=== PATIENT | male | born 1950 | race Caucasian/White ===

== ENCOUNTER 2018-01-25 12:10 | Inpatient (IN) | payer MEDICARE, OTHER ==
[~2018-01-25] VITALS: Ht 180.3 cm; Wt 120.2 kg
[2018-01-25 12:36] VITALS: BP 121/73
[2018-01-25 13:42] LABS: BASO # 0.1 x10^3/uL (0.0-0.2); BASO % 1 % (0-3); EOS # 0.1 x10^3/uL (0.0-0.7); EOS % 1 % (0-3); HEMATOCRIT 47.5 % (39.0-53.0); HEMOGLOBIN 16.3 g/dL (13.0-17.5); LYMPH # 2.1 x10^3/uL (1.0-4.8); LYMPH % 31 % (24-48); MEAN CORPUSCULAR HEMOGLOBIN 32 pg (25-35); MEAN CORPUSCULAR HGB CONC 34 g/dL (31-37); MEAN CORPUSCULAR VOLUME 93 fL (79-100); MONO # 0.6 x10^3/uL (0.0-1.1); MONO % 9 % (0-9); NEUT # 3.8 x10^3uL (1.8-7.7); NEUT % 57 % (31-73); PLATELET COUNT 176 x10^3/uL (140-400); RED BLOOD COUNT 5.14 x10^6/uL (4.30-5.70); RED CELL DISTRIBUTION WIDTH 14.5 % (11.5-14.5); WHITE BLOOD COUNT 6.7 x10^3/uL (4.0-11.0)
[2018-01-25 13:56] LABS: ALBUMIN 2.7 g/dL (3.4-5.0); ALBUMIN/GLOBULIN RATIO 0.6 (1.0-1.7); CALCIUM 9.3 mg/dL (8.5-10.1); CREATININE 1.4 mg/dL (0.7-1.3); GFR 50.4; POTASSIUM 4.2 mmol/L (3.5-5.1); TOTAL BILIRUBIN 0.3 mg/dL (0.2-1.0); TOTAL PROTEIN 7.2 g/dL (6.4-8.2)
[2018-01-25 14:17] LABS: % BANDS 1 % (0-9); % BASOS 1 % (0-3); % EOS 1 % (0-5); % LYMPHS 35 % (24-48); % METAS 1 % (0-0); % MONOS 11 % (0-10); % SEGS 50 % (35-66)
[2018-01-25 14:18] LABS: PLT ESTIMATE ADEQUATE (ADEQUATE)
[2018-01-25] MEDS ORDERED: methylPREDNISolone SOD SUCC PF 40 MG/ML VIAL. IV SCH (14:30)
[2018-01-25] MEDS: IPRATRPIUM/ALBUTEROL 0.5/2.5MG 3 ML NEBU. NEB SCH ×2 (16:00→21:13)
[2018-01-25] MEDS ORDERED: IOHEXOL 300 MG/ML 75 ML VIAL. IV ONE (18:15)
[2018-01-25 19:29] VITALS: BP 115/79
[2018-01-25] MEDS ORDERED: NICOTINE 21MG PATCH. TD SCH (20:00)
[2018-01-25] MEDS ORDERED: ASPI-612 PO (20:01)
[2018-01-25] MEDS ORDERED: CHOL10003 PO (20:01)
[2018-01-25] MEDS ORDERED: DICL100G18 TP (20:01)
[2018-01-25] MEDS ORDERED: OMEG-33 PO (20:01)
[2018-01-25] MEDS ORDERED: TORS20TA2 PO (20:01)
[2018-01-25] MEDS ORDERED: LEVO50TA5 PO (20:01)
[2018-01-25] MEDS ORDERED: CARV12.52 PO (20:01)
[2018-01-25] MEDS ORDERED: POTA20TA4 PO (20:01)
[2018-01-25] MEDS ORDERED: PITA4TAB2 PO (20:01)
[2018-01-25] MEDS ORDERED: GABA-586 PO (20:01)
[2018-01-25] MEDS ORDERED: LISI-338 PO (20:01)
[2018-01-25] MEDS ORDERED: NITR0.4T22 SL (20:01)
[2018-01-25] MEDS ORDERED: NIAC500T PO (20:01)
[2018-01-25] MEDS ORDERED: ALLO300T PO (20:01)
[2018-01-25] MEDS: IV NORMAL SALINE 1,000ML 1,000 ML IV SCH (20:09)
[2018-01-25] MEDS: cefTRIAXone IV Push 1 GM VIAL. IVP SCH (20:10)
[2018-01-25] MEDS: NIACIN ER 500 MG TABLET.ER PO SCH (21:00)
[2018-01-25] MEDS ORDERED: DICLOFENAC SODIUM 1% TOPICAL GEL 100GM TUBE. TP PRN (21:00)
[2018-01-25] MEDS ORDERED: NITROGLYCERIN SUBLINGUAL 0.4 MG BOTTLE OF 25. SL PRN (21:00)
[2018-01-25] MEDS: LACTOBACILLUS RHAMNOSUS GG 1 CAPSULE. PO SCH (21:36)
[2018-01-25] MEDS: OMEGA-3 FATTY ACIDS/FISH OIL 1,000 MG CAPSULE. PO SCH (21:37)
[2018-01-25] MEDS: GABAPENTIN 300 MG CAPSULE. PO SCH (21:37)
[2018-01-25] MEDS: CARVEDILOL 12.5 MG TABLET PO SCH (21:38)
[2018-01-25 22:25] LABS: BACTERIA,URINE 0 /HPF (0-FEW); BILIRUBIN,URINE NEG (NEG); CLARITY,URINE CLEAR; COLOR,URINE YELLOW; GLUCOSE,URINE NEG (NEG); HYALINE CASTS, URINE MOD /HPF; NITRITE,URINE NEG (NEG); RBC,URINE OCC /HPF (0-2); SQUAMOUS EPITHELIAL CELL,UR OCC /LPF; UROBILINOGEN,URINE 0.2 mg/dL (0.2 mg/dL); WBC,URINE OCC /HPF (0-4)
[2018-01-25 22:44] VITALS: BP 135/73
[2018-01-26] MEDS: IPRATRPIUM/ALBUTEROL 0.5/2.5MG 3 ML NEBU. NEB SCH ×4 (05:21→21:09)
[2018-01-26] MEDS: LEVOTHYROXINE 50 MCG TABLET PO SCH ×2 (05:22→05:33)
[2018-01-26 05:36] VITALS: BP 140/83
[2018-01-26 06:19] LABS: BASO # 0.1 x10^3/uL (0.0-0.2); BASO % 1 % (0-3); EOS % 0 % (0-3); HEMATOCRIT 46.7 % (39.0-53.0); HEMOGLOBIN 16.2 g/dL (13.0-17.5); LYMPH # 1.5 x10^3/uL (1.0-4.8); LYMPH % 14 % (24-48); MEAN CORPUSCULAR HEMOGLOBIN 32 pg (25-35); MEAN CORPUSCULAR HGB CONC 35 g/dL (31-37); MEAN CORPUSCULAR VOLUME 93 fL (79-100); MONO # 0.4 x10^3/uL (0.0-1.1); MONO % 4 % (0-9); NEUT # 8.3 x10^3uL (1.8-7.7); NEUT % 81 % (31-73); PLATELET COUNT 178 x10^3/uL (140-400); RED BLOOD COUNT 5.04 x10^6/uL (4.30-5.70); RED CELL DISTRIBUTION WIDTH 14.4 % (11.5-14.5); WHITE BLOOD COUNT 10.3 x10^3/uL (4.0-11.0)
[2018-01-26 06:26] LABS: CALCIUM 9.2 mg/dL (8.5-10.1); CREATININE 1.4 mg/dL (0.7-1.3); GFR 50.4; POTASSIUM 4.3 mmol/L (3.5-5.1)
[2018-01-26 07:42] LABS: % BANDS 4 % (0-9); % BASOS 1 % (0-3); % LYMPHS 12 % (24-48); % METAS 1 % (0-0); % MONOS 2 % (0-10); % SEGS 80 % (35-66); PLT ESTIMATE ADEQUATE (ADEQUATE); TOXIC GRANULATION SLIGHT
[2018-01-26 07:43] LABS: POLYCHROMASIA SLIGHT
[2018-01-26] MEDS: POTASSIUM CHLORIDE 20 MEQ TABLET.ER. PO SCH ×2 (08:00→17:00)
[2018-01-26] MEDS: CARVEDILOL 12.5 MG TABLET PO SCH ×2 (08:00→17:00)
[2018-01-26] MEDS: CHOLECALCIFEROL (VITAMIN D3) 1,000 UNIT TABLET PO SCH (09:00)
[2018-01-26] MEDS: ASPIRIN ENTERIC COATED 81 MG TABLET.DR. PO SCH (09:00)
[2018-01-26] MEDS: TORSEMIDE 20 MG TABLET. PO SCH ×2 (09:00→16:00)
[2018-01-26] MEDS: GABAPENTIN 300 MG CAPSULE. PO SCH ×3 (09:00→19:45)
[2018-01-26] MEDS: NIACIN ER 500 MG TABLET.ER PO SCH ×2 (09:00→19:45)
[2018-01-26] MEDS: ALLOPURINOL 300 MG TABLET. PO SCH (09:00)
[2018-01-26] MEDS: LISINOPRIL 5 MG TABLET. PO SCH (09:00)
[2018-01-26] MEDS: LACTOBACILLUS RHAMNOSUS GG 1 CAPSULE. PO SCH ×2 (09:00→19:45)
[2018-01-26] MEDS: OMEGA-3 FATTY ACIDS/FISH OIL 1,000 MG CAPSULE. PO SCH ×2 (09:00→19:45)
[2018-01-26] MEDS ORDERED: PNEUMOC CONJ VACC 23-VALENT 0.5 ML VIAL. VAX IM ONE (09:00)
--- NOTE | 2018-01-26 09:05 | RAD ---
EXAM: CT angiography of the chest with intravenous contrast. HISTORY: Elevated d-dimer. Chest pain. TECHNIQUE: Computed tomographic images of the chest were obtained following the administration of 60 cc Omnipaque 300 intravenous contrast according to angiography protocol. Multiplanar reformatting was performed and 3-dimensional maximum intensity projection images were obtained. *One or more of the following individualized dose reduction techniques were utilized for this examination: 1. Automated exposure control. 2. Adjustment of the mA and/or kV according to patient size. 3. Use of iterative reconstruction technique. COMPARISON: None. FINDINGS: There is a right hilar and perihilar mass with suspected superimposed conglomerate lymphadenopathy which narrows the traversing central pulmonary arteries and bronchi. This measures 7.0 cm in maximum dimension on coronal reconstructed images. There is right supraclavicular, paratracheal, precarinal and subcarinal lymphadenopathy. There is no left hilar lymphadenopathy. No convincing pulmonary embolism is seen, with evaluation limited due to significant respiratory motion and attenuation of the aforementioned right central pulmonary arteries. There is cardiomegaly. There are cardiac pacemaker leads. The aorta is normal in caliber. There is no pneumothorax. There is a trace right pleural effusion. There is slight increased bilateral basilar extrapleural fat. There is groundglass and nodular opacity throughout the right central lung and lower lobe, possibly due to postobstructive pneumonia or lymphangitic spread of tumor. There is a 3.2 cm right adrenal nodule or nodular thickening of the right adrenal gland. There are degenerative changes throughout the spine. There is no suspicious osseous lesion. There is severe right glenohumeral osteoarthritis. IMPRESSION: 1. No convincing pulmonary embolism. Evaluation is limited due to respiratory motion and narrowing of the central right pulmonary arteries due to a right hilar and perihilar mass, described in detail below. 2. Right hilar and perihilar mass with suspected superimposed conglomerate lymphadenopathy measuring approximately 7.0 cm in maximum dimension. This narrows the traversing central right bronchial and pulmonary arteries and is consistent with a primary neoplasm. There is also extensive metastatic lymphadenopathy within the right supraclavicular, paratracheal, precarinal and subcarinal distributions. 3. Groundglass and nodular opacities throughout the right perihilar and lower lobe distribution. This is due to postobstructive pneumonia/pneumonitis or lymphangitic spread of tumor. 4. Cardiomegaly. 5. 3.2 cm right adrenal nodule or nodular thickening of the right adrenal gland. 6. Trace right pleural effusion. Electronically signed by: Glenna Anaya MD (01/26/2018 9:03 AM) [facility]
[2018-01-26] MEDS: oxyCODONE/APAP 10/325 1 TAB TABLET PO PRN (09:06)
[2018-01-26] MEDS: IV NORMAL SALINE 1,000ML 1,000 ML IV SCH ×2 (09:07→23:02)
[2018-01-26] MEDS: methylPREDNISolone SOD SUCC PF 40 MG/ML VIAL. IV SCH ×2 (09:07→19:45)
[2018-01-26 09:51] VITALS: BP 154/79
[2018-01-26] MEDS ORDERED: ONDANSETRON PF 4 MG/2 ML VIAL. IV PRN (10:00)
[2018-01-26 15:30] VITALS: BP 145/88
[2018-01-26] MEDS: HYDROmorphone PF 2 MG/ML VIAL IV PRN ×2 (18:35→23:09)
[2018-01-26] MEDS: cefTRIAXone IV Push 1 GM VIAL. IVP SCH (19:44)
[2018-01-26 20:09] VITALS: BP 150/88
--- NOTE | 2018-01-26 21:12 | PN ---
DATE: 01/26/2018 SUBJECTIVE: The patient in with extreme shortness of breath, acute respiratory failure, exacerbation of COPD. The patient apparently has been going over to the [place] and apparently, they took some type of a biopsy, but we do not have the results. The CT scan did show a probable lung cancer with a right hilar and perihilar mass with probable metastasis as well. In any case, the patient also may have some type of pneumonia and he is on IV antibiotics for that. He says he feels a little better. OBJECTIVE: VITAL SIGNS: Blood pressure 145/80, respiratory rate 20, pulse 90, afebrile presently. GENERAL: The patient is alert and oriented. LUNGS: Diminished, poor movement of air. CARDIOVASCULAR: Regular sinus rhythm. LABORATORY DATA: Hemoglobin and hematocrit 16 and 46. Otherwise, the patient is resting fairly comfortably. The patient's creatinine is elevated at 1.4, lactic acid has come down from 2.2-1.6. IMPRESSION: Pneumonia of unspecified etiology, community acquired. Lung cancer with possible metastasis, severe back pain, probably related to possible metastasis to the bone itself. The patient's family was discussed the situation and will probably be transferred down to if they will accept him and transfer. GUY FLORES MD DR: VERONICA/chan JOB#: [id number] / [id number]
[2018-01-27] MEDS: HYDROmorphone PF 2 MG/ML VIAL IV PRN ×2 (05:22→17:36)
[2018-01-27] MEDS: IPRATRPIUM/ALBUTEROL 0.5/2.5MG 3 ML NEBU. NEB SCH ×4 (05:26→21:05)
[2018-01-27] MEDS: LEVOTHYROXINE 50 MCG TABLET PO SCH (05:42)
[2018-01-27 06:28] VITALS: BP 156/94
[2018-01-27] MEDS: LACTOBACILLUS RHAMNOSUS GG 1 CAPSULE. PO SCH ×2 (09:00→22:31)
[2018-01-27] MEDS: methylPREDNISolone SOD SUCC PF 40 MG/ML VIAL. IV SCH (09:13)
[2018-01-27] MEDS: ASPIRIN ENTERIC COATED 81 MG TABLET.DR. PO SCH (09:43)
[2018-01-27] MEDS: OMEGA-3 FATTY ACIDS/FISH OIL 1,000 MG CAPSULE. PO SCH ×2 (09:43→21:00)
[2018-01-27] MEDS: GABAPENTIN 300 MG CAPSULE. PO SCH ×3 (09:44→20:58)
[2018-01-27] MEDS: CHOLECALCIFEROL (VITAMIN D3) 1,000 UNIT TABLET PO SCH (09:45)
[2018-01-27] MEDS: ALLOPURINOL 300 MG TABLET. PO SCH (09:45)
[2018-01-27] MEDS: TORSEMIDE 20 MG TABLET. PO SCH ×2 (09:45→17:19)
[2018-01-27] MEDS: LISINOPRIL 5 MG TABLET. PO SCH (09:47)
[2018-01-27] MEDS: NIACIN ER 500 MG TABLET.ER PO SCH ×2 (09:48→20:58)
[2018-01-27] MEDS: POTASSIUM CHLORIDE 20 MEQ TABLET.ER. PO SCH ×2 (09:48→17:20)
[2018-01-27 10:59] VITALS: BP 134/75
[2018-01-27 15:08] VITALS: BP 143/94
[2018-01-27] MEDS ORDERED: CARVEDILOL 6.25 MG TABLET PO SCH (17:00)
[2018-01-27] MEDS: IV NORMAL SALINE 1,000ML 1,000 ML IV SCH ×2 (17:36→21:01)
[2018-01-27 19:16] VITALS: BP 127/82
--- NOTE | 2018-01-27 22:08 | PN ---
DATE: SUBJECTIVE: The patient is resting fairly comfortably. He has pneumonia and lung cancer. The patient says he is breathing a little bit easier. He had acute exacerbation when he first came in. He is making slow, but steady progress. Discussed his situation with his lungs and he would like to get down to as an outpatient. We will try to get him scheduled in the [facility]. Biopsy from [place] is pending. OBJECTIVE: VITAL SIGNS: Blood pressure 143/94, respiratory rate 20, pulse 90, afebrile. GENERAL: The patient is alert and oriented. LUNGS: Are diminished, but clear. CARDIOVASCULAR: Examination is stable. ABDOMEN: Soft, nontender. PLAN: As above. GUY FLORES MD DR: VERONICA/chan JOB#: [id number] / [id number]
[2018-01-27] MEDS ORDERED: levoFLOXacin 250 MG TABLET PO SCH (22:30)
[2018-01-28] MEDS: IPRATRPIUM/ALBUTEROL 0.5/2.5MG 3 ML NEBU. NEB SCH (05:12)
[2018-01-28 05:23] VITALS: BP 129/71
[2018-01-28] MEDS: oxyCODONE/APAP 10/325 1 TAB TABLET PO PRN (07:48)
[2018-01-28] MEDS ORDERED: predniSONE 20 MG TABLET PO SCH (09:00)
[2018-01-28] MEDS ORDERED: IPRA3AMP29 NEB (10:06)
[2018-01-28] MEDS ORDERED: LEVO250T25 PO (10:06)
[2018-01-28] MEDS ORDERED: OXYC-411 PO (10:06)
[2018-01-28] MEDS ORDERED: LACT1CAP19 PO (10:06)
[2018-01-28] MEDS ORDERED: PRED5TAB PO (10:06)
--- NOTE | 2018-02-05 14:26 | DS ---
DATE OF DISCHARGE: 01/28/2018 HOSPITAL COURSE: The patient is a 67-year-old male who came in with increased shortness of breath. Seen initially in the office, was noted to have a pneumonic process, was admitted for IV antibiotic therapy and the like. The patient's CAT scan also showed the images of a cancerous lesion within the lungs with probable metastatic disease as well. As a result of all this, the patient was informed he will have to go to for followup on his lung cancer with possible mets. He did have a biopsy at the [place], although those reports were not available at the time. So, what we will do is he will be discharged home and then followup. He has an appointment with [facility]. IMPRESSION: Lung cancer, pneumonia of unspecified etiology, acute exacerbation of chronic obstructive pulmonary disease, type 2 diabetes, sepsis, chronic kidney disease stage 3, [id number] protein malnutrition, morbid obesity. PLAN: As above. Continue to monitor the patient. See EMRAD. Decreased activity. The patient will be discharged home. Follow up as indicated with [facility]. GUY FLORES MD DR: VERONICA/chan JOB#: [id number] / [id number]
== END 2018-01-28 10:15 | disposition home or self-care (01) | DRG 871 ==
LOC: 1 SOUTH 12:12
PROVIDERS: ADMIT Family Medicine; ATTEND Family Medicine
DX: A41.9 Sepsis, unspecified organism (principal); J18.9 Pneumonia, unspecified organism; J96.00 Acute respiratory failure, unspecified whether with hypoxia or hypercapnia; J44.0 Chronic obstructive pulmonary disease with (acute) lower respiratory infection; C34.90 Malignant neoplasm of unspecified part of unspecified bronchus or lung; C79.51 Secondary malignant neoplasm of bone; J44.1 Chronic obstructive pulmonary disease with (acute) exacerbation; E44.0 Moderate protein-calorie malnutrition; E11.9 Type 2 diabetes mellitus without complications; Z95.0 Presence of cardiac pacemaker; Z82.49 Family history of ischemic heart disease and other diseases of the circulatory system; Z83.3 Family history of diabetes mellitus; Z90.49 Acquired absence of other specified parts of digestive tract; E66.01 Morbid (severe) obesity due to excess calories; N18.3 Chronic kidney disease, stage 3 (moderate); E11.22 Type 2 diabetes mellitus with diabetic chronic kidney disease
CPT/HCPCS: 36415; 71275; 80048; 80053; 81001; 82550; 82947; 83605; 85007; 85025; 85379; 87086; 94640; 99406; J0696; J1170; J1956; J2920; J7512; J7620; Q9967; J7030

== ENCOUNTER → 2018-03-13 | Outpatient (CLI) | payer MEDICARE, OTHER ==
[~2018-03-13] MED LIST: ALLO300T PO; ASPI-612 PO; CARV12.52 PO; CHOL10003 PO; DICL100G18 TP; GABA-586 PO; IPRA3AMP29 NEB; LACT1CAP19 PO; LEVO250T25 PO; LEVO50TA5 PO; LISI-338 PO; NIAC500T PO; NITR0.4T22 SL; OMEG-33 PO; OXYC-411 PO; PITA4TAB2 PO; POTA20TA4 PO; PRED5TAB PO; TORS20TA2 PO
[2018-03-13 10:27] LABS: BASO % 0 % (0-3); EOS % 0 % (0-3); HEMOGLOBIN 8.6 g/dL (13.0-17.5); LYMPH # 1.9 x10^3/uL (1.0-4.8); LYMPH % 29 % (24-48); MEAN CORPUSCULAR HEMOGLOBIN 31 pg (25-35); MEAN CORPUSCULAR HGB CONC 34 g/dL (31-37); MEAN CORPUSCULAR VOLUME 90 fL (79-100); MONO # 1.4 x10^3/uL (0.0-1.1); MONO % 21 % (0-9); NEUT # 3.3 x10^3uL (1.8-7.7); NEUT % 49 % (31-73); RED BLOOD COUNT 2.78 x10^6/uL (4.30-5.70); WHITE BLOOD COUNT 6.7 x10^3/uL (4.0-11.0)
[2018-03-13 10:40] LABS: PLATELET COUNT 22 x10^3/uL (140-400)
[2018-03-13 13:51] LABS: % BANDS 13 % (0-9); % LYMPHS 31 % (24-48); % METAS 2 % (0-0); % OTHERS 8 % (0-0); % SEGS 42 % (35-66)
[2018-03-13 13:54] LABS: PLT ESTIMATE DECREASED (ADEQUATE)
[2018-03-13 13:59] LABS: MICROCYTOSIS SLIGHT; OVALOCYTES OCC; ROULEAUX PRESENT; SCHISTOCYTES OCC
== END | disposition home or self-care (01) ==
LOC: LAB 10:00
PROVIDERS: ATTEND Family Medicine
DX: D69.8 Other specified hemorrhagic conditions (principal); E11.22 Type 2 diabetes mellitus with diabetic chronic kidney disease; N18.3 Chronic kidney disease, stage 3 (moderate); J44.9 Chronic obstructive pulmonary disease, unspecified; Z83.3 Family history of diabetes mellitus; Z90.49 Acquired absence of other specified parts of digestive tract; Z82.49 Family history of ischemic heart disease and other diseases of the circulatory system; Z85.118 Personal history of other malignant neoplasm of bronchus and lung
CPT/HCPCS: 36415; 85007; 85025